=== PATIENT | male | born 1975 | race Caucasian/White ===

== ENCOUNTER 2025-08-05 06:16 | Day surgery (SDC) | payer OTHER ==
[2025-07-29 10:02] VITALS: BMI 30.9
[2025-08-05] MEDS ORDERED: PROPOFOL 20 ML ONE (06:58)
[2025-08-05] MEDS ORDERED: Sevoflurane 250 ML INH ANEST BOTTLE ONE (07:16)
[2025-08-05] MEDS ORDERED: Rocuronium Bromide 10 MG/ML (10ML VIAL) ONE (07:58)
[2025-08-05] MEDS ORDERED: AFRIN NASAL MIST 15 ML BOT ONE ×2 (08:03→09:09)
[2025-08-05] MEDS ORDERED: Lidocaine 1% w/Epinephrine 1:200K 30 ML VIAL ONE (08:08)
[2025-08-05] MEDS ORDERED: Bacitracin 1 PK ONE (08:08)
[2025-08-05] MEDS ORDERED: Oxymetazoline HCl 0.05% (15 ML) ONE (08:41)
[2025-08-05] MEDS ORDERED: SUGAMMADEX SODIUM 200 MG/2 ML VIAL ONE (08:58)
== END 2025-08-05 11:25 | disposition home or self-care (01) ==
LOC: CSHSDC 06:16
PROVIDERS: ATTEND Otolaryngology Plastic Surgery within the Head & Neck
PROC: 09BT8ZZ Excision of Left Frontal Sinus, Via Natural or Artificial Opening Endoscopic (ICD-10-PCS; principal; 2025-08-05)
PROC: 8E09XBZ Computer Assisted Procedure of Head and Neck Region (ICD-10-PCS; principal; 2025-08-05)
PROC: 09BW8ZZ Excision of Right Sphenoid Sinus, Via Natural or Artificial Opening Endoscopic (ICD-10-PCS; principal; 2025-08-05)
PROC: 09BS8ZZ Excision of Right Frontal Sinus, Via Natural or Artificial Opening Endoscopic (ICD-10-PCS; principal; 2025-08-05)
PROC: 09BU8ZZ Excision of Right Ethmoid Sinus, Via Natural or Artificial Opening Endoscopic (ICD-10-PCS; principal; 2025-08-05)
PROC: 09BQ8ZZ Excision of Right Maxillary Sinus, Via Natural or Artificial Opening Endoscopic (ICD-10-PCS; principal; 2025-08-05)
PROC: 09BR8ZZ Excision of Left Maxillary Sinus, Via Natural or Artificial Opening Endoscopic (ICD-10-PCS; principal; 2025-08-05)
PROC: 09BV8ZZ Excision of Left Ethmoid Sinus, Via Natural or Artificial Opening Endoscopic (ICD-10-PCS; principal; 2025-08-05)
PROC: 09BL8ZZ Excision of Nasal Turbinate, Via Natural or Artificial Opening Endoscopic (ICD-10-PCS; principal; 2025-08-05)
PROC: 09BX8ZZ Excision of Left Sphenoid Sinus, Via Natural or Artificial Opening Endoscopic (ICD-10-PCS; principal; 2025-08-05)
DX: J32.4 Chronic pansinusitis (principal); J34.2 Deviated nasal septum; J34.3 Hypertrophy of nasal turbinates; J33.0 Polyp of nasal cavity; J33.8 Other polyp of sinus; Z88.1 Allergy status to other antibiotic agents
CPT/HCPCS: 88304; 93005; 93010; J1100; J2704